=== PATIENT | female | born 1970 | race Caucasian/White ===

== ENCOUNTER 2019-08-21 15:20 | Observation (INO) | payer BC ==
--- NOTE | 2019-08-21 16:08 | ER Document Report ---
ED Medical Screen (RME) - General Stated Complaint: ABNORMAL LABS Time Seen by Provider: 08/21/19 16:02 Primary Care Provider: FIDE COE, DEMOLITION WORKER [Primary Care Provider] - Follow up as needed Notes: Patient is a 48-year-old female who presents to the emergency department for a hemoglobin of 6.1. Patient was seen by her primary care provider yesterday and her hemoglobin was low at the office and she was referred to [facility] and today at 1205 her labs were drawn and her hemoglobin was 6.1. Patient reports that she is having heavy menstrual cycles. States that she has fibroids. Patient has history of a tubal ligation and was told previously that she needs a hysterectomy. Patient also reports being tired. Exam: Slightly pale in color. I have greeted and performed a rapid initial assessment of this patient. A comprehensive ED assessment and evaluation of the patient, analysis of test results and completion of medical decision making process will be conducted by an additional ED providers. - Related Data Allergies/Adverse Reactions: codeine [Codeine] Allergy (Mild, Verified 05/19/12 09:13) Past Medical History Renal/ Medical History: Reports: Hx Ovarian Cysts - pcos Infectious Medical History: Denies: Hx MRSA Past Surgical History: Reports: Hx Appendectomy, Hx Section - x2, Hx Cholecystectomy - Immunizations Immunizations up to date: No Hx Diphtheria, Pertussis, Tetanus Vaccination: No Physical Exam - Vital signs Vitals: Temp Pulse Resp BP Pulse Ox 97.9 F 119 H 16 175/92 H 97 08/21/19 15:24 08/21/19 15:24 08/21/19 15:24 08/21/19 15:24 08/21/19 15:24 Course - Vital Signs Vital signs: Temp Pulse Resp BP Pulse Ox 97.9 F 119 H 16 175/92 H 97 08/21/19 15:24 08/21/19 15:24 08/21/19 15:24 08/21/19 15:24 08/21/19 15:24 Doctor's Discharge - Discharge Referrals: FIDE COE, DEMOLITION WORKER [Primary Care Provider] - Follow up as needed
[2019-08-21] MEDS ORDERED: NORMAL SALINE 250 ML IV PRN ×4 (16:15→19:52)
--- NOTE | 2019-08-21 17:02 | RADIOLOGY REPORT (SQ) ---
EXAM DESCRIPTION: U/S NON OB PEL TV W/DOPPLER IMAGES COMPLETED DATE/TIME: 08/21/2019 4:51 pm REASON FOR STUDY: vaginal bleeding; hgb 6.1 COMPARISON: None. TECHNIQUE: Dynamic and static grayscale images acquired of the pelvis via transabdominal and transva ginal approach and recorded on PACS. Additional selected color Doppler and spectral images recorded. LIMITATIONS: None. FINDINGS: UTERUS: Multiple heterogenous masses, the largest measures 4.5 cm. ENDOMETRIAL STRIPE: No focal or generalized thickening. No masses. CERVIX: No nabothian cysts. RIGHT OVARY AND DOPPLER: Ovary not visualized. LEFT OVARY AND DOPPLER: Normal size. No worrisome masses. Normal arterial vascular flow without evid ence for torsion. FREE FLUID: None noted. OTHER: No other significant finding. MEASUREMENTS: UTERUS: 6.0 x 7.3 x 10.4 cm. ENDOMETRIAL STRIPE: 6 mm. RIGHT OVARY: Not visualized. LEFT OVARY: 1.9 x 2.3 x 3.4 cm. IMPRESSION: MULTIPLE UTERINE FIBROIDS. TECHNICAL DOCUMENTATION: JOB ID: [id number] [employer]- All Rights Reserved Rev-07/20 Reading location - IP/workstation name: [email or web address]
--- NOTE | 2019-08-21 19:02 | ER Document Report ---
ED General - General Mode of Arrival: Ambulatory TRAVEL OUTSIDE OF THE [place] IN LAST 30 DAYS: No - General Chief Complaint: Abnormal Lab Results Stated Complaint: ABNORMAL LABS Time Seen by Provider: 08/21/19 16:02 Notes: 48-year-old female past medical history significant for hypertension, anxiety, uterine fibroids presents to the emergency room after being called by her primar care physician that that her hemoglobin was extremely low and needed to be repeated. Patient states she had repeat blood work done this afternoon and was told to go the emergency room for blood transfusion. Patient states she is that she has a long history of heavy vaginal bleeding during her menstrual cycles. Patient states that she was told she would need an ablation or hysterectomy which she did not get done as she did not have insurance. Patient states she has been bleeding consistently for the past 5 months recently stopped on August 03. No history of anemia. Not currently on any iron supplements patient states that she gets extremely fatigued with any type of exertion. Feels lightheaded and dizzy at times. Chest pain, shortness of breath, no difficulty breathing. ( NUHA NGUYEN) - Related Data Allergies/Adverse Reactions: codeine [Codeine] Allergy (Mild, Verified 05/19/12 09:13) shellfish derived Allergy (Verified 08/21/19 20:37) Past Medical History - General Information source: Patient - Social History Smoking Status: Current Every Day Smoker Chew tobacco use (# tins/day): No Frequency of alcohol use: Social Drug Abuse: None Family History: Reviewed & Not Pertinent Patient has homicidal ideation: No Renal/ Medical History: Reports: Hx Ovarian Cysts - pcos Infectious Medical History: Denies: Hx MRSA Past Surgical History: Reports: Hx Appendectomy, Hx Section - x2, Hx Cholecystectomy - Immunizations Immunizations up to date: No Hx Diphtheria, Pertussis, Tetanus Vaccination: No Review of Systems - Review of Systems Constitutional: Malaise, Weakness Cardiovascular: Lightheaded Respiratory: No symptoms reported Gastrointestinal: No symptoms reported Musculoskeletal: No symptoms reported Skin: No symptoms reported Neurological/Psychological: No symptoms reported -: Yes All other systems reviewed and negative Physical Exam - General General appearance: Appears well, Alert In distress: Mild - HEENT Head: Normocephalic Eyes: Pale conjunctiva Extraocular movements intact: Yes Pharynx: Normal Neck: Normal - Respiratory Respiratory status: No respiratory distress Chest status: Nontender Breath sounds: Normal Chest palpation: Normal - Cardiovascular Rhythm: Regular Heart sounds: Normal auscultation Murmur: No - Abdominal Inspection: Normal Distension: No distension Bowel sounds: Normal Tenderness: Nontender Organomegaly: No organomegaly - Back Back: Normal, Nontender. No: CVA tenderness - Neurological Neuro grossly intact: Yes Cognition: Normal Orientation: AAOx4 Mark Coma Scale Eye Opening: Spontaneous Mark Coma Scale Verbal: Oriented [place] Coma Scale Motor: Obeys Commands Mark Coma Scale Total: 15 Speech: Normal Motor strength normal: LUE, RUE, LLE, RLE Sensory: Normal - Skin Skin Temperature: Warm Skin Moisture: Dry Skin Color: Normal - Vital signs Vitals: Temp 97.8 F 08/21/19 15:20 Course - Consults Jonas Hoffmann Time consulted: 19:25 Consulted provider: follow-up in office Dr. Adair Time consulted: 19:30 Consulted provider: will see as inpatient - Re-evaluation Re-evalutation: 08/21/19 19:23 Patient is resting comfortably concerned about a blood transfusion. Patient was given with the risks and benefits of blood transfusion. Counseled patient on need for admission. Patient is agreeable for admission. 08/21/19 21:31 (NUHA NGUYEN) 08/22/19 00:40 This patient was personally evaluated by me in addition to the physician assistant department manager or nurse practitioner. Review of systems: Generalized weakness Physical exam: No acute distress Medical decision making: Symptomatic anemia, will require admission and transfusion. Likely AMMONIA TECHNICIAN source. Discussed with AMMONIA TECHNICIAN hospitalist. (CHANTEL SIMONS) - Vital Signs Vital signs: Temp Pulse Resp BP Pulse Ox 98.7 F 77 14 130/68 H 100 08/21/19 23:00 08/21/19 23:00 08/21/19 23:00 08/21/19 23:00 08/21/19 23:00 - Laboratory Laboratory results interpreted by me: 08/21/19 16:45 Crossmatch See Detail - Consults Jonas Hoffmann Reason for consultation: 08/21/19 21:32 Lab results, ultrasound results, admission (NUHA NGUYEN) Dr. Adair Reason for consultation: 08/21/19 21:33 Discussed symptomatic anemia need for blood transfusion, accepts admission. (NUHA NGUYEN) Discharge - Discharge Admitting Provider: Mana (Hospitalist) Unit Admitted: Medical Floor - Discharge Clinical Impression: Anemia Qualifiers: Anemia type: unspecified type Qualified Code(s): D64.9 - Anemia, unspecified Uterine fibroid Qualifiers: Uterine leiomyoma location: unspecified location Qualified Code(s): D25.9 - Le iomyoma of uterus, unspecified Condition: Stable Disposition: ADMITTED OBSERVATION
[2019-08-21] MEDS ORDERED: MAG HYDROX/AL HYDROX/SIMETH SUSP 30 ML UDCUP PO PRN (19:55)
[2019-08-21] MEDS ORDERED: MAGNESIUM HYDROXIDE SUSP 30 ML UDCUP PO PRN (19:55)
[2019-08-21] MEDS ORDERED: NORMAL SALINE 1000 ML 1,000 ML IV PRN (19:55)
[2019-08-21] MEDS ORDERED: PROMETHAZINE HCL INJ 25 MG/1 ML VIAL IV PRN (19:55)
[2019-08-21] MEDS ORDERED: METOPROLOL TARTRATE PF/INJ 5 MG/5 ML SDV IV PRN (20:02)
[2019-08-21] MEDS ORDERED: GUAIFENESIN SYRP 200 MG/10 ML UDC PO PRN (20:02)
[2019-08-21] MEDS ORDERED: LORAZEPAM INJ 2 MG/1 ML VIAL IV PRN (20:02)
[2019-08-21] MEDS ORDERED: NICOTINE 21 MG/24 HR PATCH.TD24 TD PRN (20:02)
[2019-08-21] MEDS ORDERED: MELATONIN 5 MG TABLET PO PRN (20:02)
[2019-08-21] MEDS ORDERED: MORPHINE SULFATE 10 MG/ML INJ IV PRN (20:02)
[2019-08-21] MEDS ORDERED: ACETAMINOPHEN 325 MG TABLET PO PRN (20:02)
[2019-08-21] MEDS: ACETAMINOPHEN 325 MG TABLET PO PRN (20:50)
[2019-08-21] MEDS: DIPHENHYDRAMINE HCL 25 MG CAPSULE PO PRN (20:50)
--- NOTE | 2019-08-21 22:17 | PDOC H&P ---
History of Present Illness Admission Date/PCP: 08/21/2019 19:33 FIDE COE NP Patient complains of: Abnormal laboratory results History of Present Illness: BRIEN BUTLER is a 48 year old female presented to the emergency room with a history of abnormal laboratory results at her primary care provider's office yesterday. She admits being called by her primary care provider's office with the information that her hemoglobin was 6.1 and that she would require a transfusion and thus needed to present to the emergency room for further evaluation. She further admits the associated symptoms of fatigue and accompanying exertional weakness. She continues by providing a history of heavy vaginal bleeding over the last 5 months related to uterine fibroids. She has been advised that she will need to have a hysterectomy performed. She has not identified any additional associated or accompanying signs and symptoms. She denies prior similar episodes. She has not identified any additional aggravating or ameliorating factors for her anemia. In the emergency room patient was found to have a hemoglobin of 6.1 with a hematocrit of 21.4. She was subsequently admitted to observation status for blood transfusions. Past Medical History Cardiac Medical History: Reports: Hypertension Denies: Coronary Artery Disease, DVT, Hyperlipidema, Pulmonary Embolism Pulmonary Medical History: Denies: Asthma, Chronic Obstructive Pulmonary Disease (COPD) EENT Medical History: Denies: Cataracts, Ears - Hearing aids Neurological Medical History: Denies: Hemorrhagic CVA, Ischemic CVA, Seizures Endocrine Medical History: Reports: Obesity Denies: Diabetes Mellitus Type 1, Diabetes Mellitus Type 2, Hyperthyroidism, Hypothyroidism Renal/ Medical History: Reports: Other - Uterine fibroids with heavy dysfunctional uterine bleeding. PCOS. Denies: Chronic Kidney Disease, Nephrolithiasis Malignancy Medical History: Reports: None GI Medical History: Denies: Cirrhosis, Crohn's Disease, Hepatitis, Peptic Ulcer Disease, Ulcerative Colitis Musculoskeltal Medical History: Denies: Arthritis, Fibromyalgia, Gout Skin Medical History: Denies: Eczema, Psoriasis Psychiatric Medical History: Reports: General Anxiety Disorder, Tobacco Dependency Denies: Alcohol Dependency, Substance Abuse Traumatic Medical History: Reports: None Hematology: Reports: Anemia Denies: Bleeding Tendencies Infectious Medical History: Reports: None Past Surgical History Past Surgical History: Reports: Appendectomy, Section - x2, Cholecystectomy Social History Information Source: Patient Smoking Status: Current Every Day Smoker Electronic Cigarette use?: No Frequency of Alcohol Use: Occasional Hx Recreational Drug Use: No Drugs: None Hx Prescription Drug Abuse: No - Advance Directive Resuscitation Status: Full Code Surrogate healthcare decision maker:: Marina Camacho Family History Family History: Hypertension. denies: CAD, DM, Malignancy Parental Family History Reviewed: Yes Children Family History Reviewed: No Sibling(s) Family History Reviewed.: Yes Medication/Allergy Home Medications: Phentermine HCl [Adipex-P] 37.5 mg PO DAILY 05/15/12 Metformin HCl [Glucophage 500 Mg Tablet] 500 mg PO DAILY 05/17/12 Oxycodone HCl/Acetaminophen [Percocet 5-325 mg Tablet] 1 tab PO TIDP PRN 05/19/12 Sulfamethoxazole/Trimethoprim [Septra-DS 800/160 mg Tablet] 1 tab PO BID 05/19/12 Allergies/Adverse Reactions: codeine [Codeine] Allergy (Mild, Verified 05/19/12 09:13) Review of Systems Constitutional: PRESENT: as per HPI, fatigue, weakness - Exertional. ABSENT: anorexia, chills, fever(s) Eyes: ABSENT: visual disturbances, other - Eye pain Ears: ABSENT: hearing changes, other - Ear pain Nose, Mouth, and Throat: ABSENT: headache(s), sore throat Cardiovascular: ABSENT: chest pain, palpitations Respiratory: ABSENT: cough, dyspnea Gastrointestinal: ABSENT: abdominal pain, constipation, diarrhea, nausea, vomiting Genitourinary: PRESENT: other - Heavy vaginal bleeding nearly continuous for 5 months. ABSENT: dysuria, hematuria Musculoskeletal: ABSENT: back pain, joint swelling Integumentary: ABSENT: diaphoresis, pruritus, rash Neurological: ABSENT: confusion, convulsions, dizziness, focal weakness, memory loss, syncope Psychiatric: PRESENT: anxiety. ABSENT: depression Endocrine: ABSENT: cold intolerance, heat intolerance, polydipsia, polyphagia, polyuria Hematologic/Lymphatic: ABSENT: easy bleeding, easy bruising Allergic/Immunologic: ABSENT: seasonal rhinorrhea Physical Exam Vital Signs: Temp Pulse Resp BP Pulse Ox 97.9 F 119 H 16 175/92 H 97 08/21/19 15:24 08/21/19 15:24 08/21/19 15:24 08/21/19 15:24 08/21/19 15:24 Intake & Output 08/19/19 08/20/19 08/21/19 23:59 23:59 23:59 Weight 99.4 kg General appearance: PRESENT: no acute distress, cooperative, obese Head exam: PRESENT: atraumatic, normocephalic Eye exam: PRESENT: conjunctiva pale. ABSENT: conjunctival injection, nystagmus, scleral icterus Ear exam: PRESENT: normal external ear exam. ABSENT: bleeding, drainage Mouth exam: PRESENT: dry mucosa, neck supple Neck exam: ABSENT: thyromegaly, tracheal deviation Respiratory exam: PRESENT: clear to auscultation luzmaria, symmetrical, unlabored Cardiovascular exam: PRESENT: RRR. ABSENT: clicks, gallop, rubs, tachycardia Pulses: PRESENT: normal radial pulses, normal dorsalis pedis pul Vascular exam: PRESENT: normal capillary refill, pallor - Mild generalized pallor GI/Abdominal exam: PRESENT: normal bowel sounds, soft Rectal exam: PRESENT: deferred Extremities exam: ABSENT: joint swelling, pedal edema Musculoskeletal exam: ABSENT: deformity, dislocation Neurological exam: PRESENT: alert, oriented to person, oriented to place, oriented to time, oriented to situation, CN II-XII grossly intact. ABSENT: motor sensory deficit Psychiatric exam: PRESENT: appropriate affect, normal mood Skin exam: PRESENT: dry, intact, warm. ABSENT: jaundice, rash, urticaria Results Laboratory Results: 08/21/19 16:45 Blood Type O POSITIVE Antibody Screen NEGATIVE Impressions: Transvaginal US 08/21/19 16:08 IMPRESSION: MULTIPLE UTERINE FIBROIDS. Assessment and Plan - Diagnosis (1) Anemia due to blood loss, chronic Is this a current diagnosis for this admission?: Yes (2) Dysfunctional uterine bleeding Is this a current diagnosis for this admission?: Yes (3) Uterine fibroid Qualifiers: Uterine leiomyoma location: unspecified location Qualified Code(s): D25.9 - Leiomyoma of uterus, unspecified Is this a current diagnosis for this admission?: Yes (4) History of polycystic ovarian syndrome Is this a current diagnosis for this admission?: Yes (5) Hypertension Qualifiers: Hypertension type: essential hypertension Qualified Code(s): I10 - Essential (primary) hypertension Is this a current diagnosis for this admission?: Yes (6) Generalized anxiety disorder Is this a current diagnosis for this admission?: Yes (7) Obesity Qualifiers: Obesity type: unspecified obesity type Obesity classification: unspecified obesity classification Serious obesity comorbidity presence: with serious comorbidity Qualified Code(s): E66.9 - Obesity, unspecified Is this a current diagnosis for this admission?: Yes (8) Continuous tobacco abuse Is this a current diagnosis for this admission?: Yes - Plan Summary Summary: Patient will be admitted observation status on the medical floor where she will receive routine supportive and symptomatic cares. She will be given a transfusion of 2 units of packed red blood cells overnight and her hemoglobin hematocrit will be rechecked posttransfusion. She will receive Ativan 1 mg IV every 4 hours as needed for anxiety or restlessness. She received morphine sulfate 2 to 4 mg IV every 2 hours on an as-needed basis for pain. She will receive routine pretransfusion Tylenol and Benadryl. She will receive hydralazine and/or metoprolol intravenously as needed for control of blood pressure and heart rate. Smoking cessation is advised and counseled briefly at the bedside. A nicotine patch is available for the patient's use, if desired. She will be placed on a cardiac diet. A gynecology consultation will be obtained on a routine basis to arrange follow-up treatment. - Time Time Spent with patient: 15-24 minutes Smoking Cessation Education: 3 to 10 minutes Medications reviewed and adjusted accordingly: Yes Anticipated discharge: Home Within: within 24 hours - Inpatient Certification Based on my medical assessment, after consideration of the patient's comorbidities, presenting symptoms, or acuity I expect that the services needed warrant INPATIENT care.: No I certify that my determination is in accordance with my understanding of Medicare's requirements for reasonable and necessary INPATIENT services [42 CFR 412.3e].: No
[2019-08-21] MEDS: HEPARIN SOD (PORCINE) 5,000 UNIT/ML 1 ML VIAL SUBCUT SCH (22:48)
[2019-08-21 22:49] LABS: APPEARANCE,URINE CLEAR; BILIRUBIN,URINE NEGATIVE (NEGATIVE); COLOR,URINE YELLOW; GLUCOSE, URINE NEGATIVE (NEGATIVE); KETONES,URINE NEGATIVE (NEGATIVE); PROTEIN,URINE NEGATIVE (NEGATIVE); URINE SPECIFIC GRAVITY 1.016; UROBILINOGEN,URINE NEGATIVE mg/dL (<2.0)
[2019-08-21] MEDS: FAMOTIDINE 20 MG TABLET PO SCH (22:51)
[2019-08-22] MEDS: ACETAMINOPHEN 325 MG TABLET PO PRN (03:15)
[2019-08-22] MEDS: DIPHENHYDRAMINE HCL 25 MG CAPSULE PO PRN (03:15)
[2019-08-22] MEDS: HEPARIN SOD (PORCINE) 5,000 UNIT/ML 1 ML VIAL SUBCUT SCH ×2 (06:40→15:41)
[2019-08-22 09:59] LABS: ABSOLUTE BASOPHILS # (AUTO) 0.1 10^3/uL (0.0-0.2); ABSOLUTE EOSINOPHILS # (AUTO) 0.2 10^3/uL (0.0-0.6); ABSOLUTE LYMPHOCYTES (AUTO) 1.6 10^3/uL (0.5-4.7); ABSOLUTE MONOCYTES (AUTO) 0.8 10^3/uL (0.1-1.4); ABSOLUTE NEUT (AUTO) 3.2 10^3/uL (1.7-8.2); BASOPHILS % (AUTO) 1.4 % (0-2); EOSINOPHILS % (AUTO) 3.1 % (0-6); HEMATOCRIT 27.9 % (36.0-47.0); LYMPHOCYTES % (AUTO) 27.6 % (13-45); MEAN CORPUSCULAR HEMOGLOBIN 19.9 pg (27.0-33.4); MEAN CORPUSCULAR HGB CONC 30.2 g/dL (32.0-36.0); MONOCYTES % (AUTO) 13.1 % (3-13); RED BLOOD COUNT 4.24 10^6/uL (3.72-5.28); RED CELL DISTRIBUTION WIDTH 28.7 % (11.5-14.0); SEGMENTED NEUTROPHILS % (AUTO) 54.8 % (42-78); TOTAL CELLS COUNTED % (AUTO) 100 %; WHITE BLOOD COUNT 5.9 10^3/uL (4.0-10.5)
[2019-08-22] MEDS ORDERED: PAROXETINE HCL 20 MG TABLET PO SCH (10:00)
[2019-08-22] MEDS ORDERED: AMLODIPINE BESYLATE 10 MG TABLET PO SCH (10:00)
[2019-08-22 10:01] LABS: HEMOGLOBIN 8.4 g/dL (12.0-15.5)
[2019-08-22 10:02] LABS: MEAN CORPUSCULAR VOLUME 66 fl (80-97)
[2019-08-22 10:28] LABS: ANISOCYTOSIS 4+; HYPOCHROMASIA 3+; OVALOCYTES 1+; POIKILOCYTOSIS 1+; POLYCHROMASIA 1+; STOMATOCYTES SLIGHT
[2019-08-22 10:29] LABS: PLATELET CLUMPS PRESENT; PLATELET COMMENT ADEQUATE; PLATELET LARGE PRESENT
[2019-08-22 10:30] LABS: ANION GAP 6 (5-19); BLOOD UREA NITROGEN 8 mg/dL (7-20); CALCIUM 8.5 mg/dL (8.4-10.2); CARBON DIOXIDE 26 mmol/L (22-30); CHLORIDE 104 mmol/L (98-107); CHOLESTEROL 113.76 mg/dL (0-200); GLUCOSE 102 mg/dL (75-110); POTASSIUM 3.8 mmol/L (3.6-5.0); TRIGLYCERIDES 141 mg/dL (<150)
[2019-08-22 10:32] LABS: PLATELET COUNT 340 10^3/uL (150-450)
[2019-08-22 10:42] LABS: DIRECT LDL 67 mg/dL (<100)
[2019-08-22] MEDS: FAMOTIDINE 20 MG TABLET PO SCH (11:06)
[2019-08-22] MEDS: DOCUSATE SODIUM 100 MG CAPSULE PO SCH ×2 (11:07→19:23)
[2019-08-22] MEDS ORDERED: CYANOCOBALAMIN (VITAMIN B-12) INJ 1000 MCG/1 ML VIAL IM ONE ×2 (14:30→16:30)
[2019-08-22] MEDS ORDERED: IRON SUCROSE COMPLEX 300 MG in NORMAL SALINE 250 ML IV ONE (16:30)
--- NOTE | 2019-08-22 16:36 | PDOC CONSULTATION ---
Consultation Consult Date: 08/22/19 Attending physician:: SHAMIKA BELCHER Provider Consulted: CARI NAGY Consult reason:: fibroids, anemia History of Present Illness Admission Date/PCP: 08/21/19 20:11 FIDE COE NP Patient complains of: anemia, known h/o uterine firboids. History of Present Illness: BRIEN BUTLER is a 48 year old female with h/o section, rick, appy, gastric sleeve in 2014 then Gastric bypass in 2017 presents for anemia as dx from her PCM. She reports increasing irregular menses over the last year. She has usually two menses a year. 7 days of bleeding with changing pads q 1-2 hours and then she bleeds for 5 days sometimes light and sometimes heavy. She is well known to me as I saw her in 2018 several times - she was planning to have an ablation to temporize things until she could afford hysterectomy but then never showed up after that. EMBx was negative in 2018. SHe has known h/o anemia and h/o thrombocytopenia as well. She had been placed on Lysteda by Dr. Wheeler in the past but patient reports that the Lysteda caused severe pain. She reports that she was lost to care due to lost insurance but just obtained insurance in the last month. Past Medical History LMP: Aug Gynecological Infection: No Cardiac Medical History: Reports: Hypertension Denies: Coronary Artery Disease, DVT, Hyperlipidema, Pulmonary Embolism Pulmonary Medical History: Denies: Asthma, Chronic Obstructive Pulmonary Disease (COPD) EENT Medical History: Denies: Cataracts, Ears - Hearing aids Neurological Medical History: Denies: Hemorrhagic CVA, Ischemic CVA, Seizures Endocrine Medical History: Reports: Obesity Denies: Diabetes Mellitus Type 1, Diabetes Mellitus Type 2, Hyperthyroidism, Hypothyroidism Renal/ Medical History: Reports: Other - Uterine fibroids with heavy dysfunctional uterine bleeding. PCOS. Denies: Chronic Kidney Disease, Nephrolithiasis Malignancy Medical History: Reports: None GI Medical History: Denies: Cirrhosis, Crohn's Disease, Hepatitis, Peptic Ulcer Disease, Ulcerative Colitis Musculoskeltal Medical History: Denies: Arthritis, Fibromyalgia, Gout Skin Medical History: Denies: Eczema, Psoriasis Psychiatric Medical History: Reports: General Anxiety Disorder, Tobacco Dependency Denies: Alcohol Dependency, Depression, Substance Abuse Traumatic Medical History: Reports: None Infectious Medical History: Reports: None Denies: Methicillin-Resistant Staph Aureus Social History Information Source: Patient Lives with: Family Smoking Status: Current Every Day Smoker Electronic Cigarette use?: No Frequency of Alcohol Use: Occasional Hx Recreational Drug Use: No Drugs: None Hx Prescription Drug Abuse: No - Advance Directive Resuscitation Status: Full Code Family History Family History: Hypertension. denies: CAD, DM, Malignancy Parental Family History Reviewed: No Children Family History Reviewed: NA Sibling(s) Family History Reviewed.: NA Medication/Allergy Home Medications: RX: Alprazolam 0.25 mg PO BIDP PRN 08/21/19 RX: Amlodipine Besylate [Norvasc 10 mg Tablet] 10 mg PO DAILY 08/21/19 RX: Paroxetine HCl [Paxil] 10 mg PO DAILY 08/21/19 Ferrous Sulfate [Slow Fe] 142 mg PO DAILY #90 tablet.er 08/22/19 Medroxyprogesterone Acet [Provera 10 Mg Tablet] 20 mg PO TID 30 Days #39 tablet 08/22/19 RX: Acetaminophen [Tylenol 325 mg Tablet] 650 mg PO Q4HP PRN tablet 08/22/19 RX: Multivitamin 1 each PO DAILY #90 tablet 08/22/19 RX: Nicotine [Nicoderm 21 mg/24 Hr Transderm Patch] 1 each TD DAILYP PRN #30 patch.td24 08/22/19 Allergies/Adverse Reactions: codeine [Codeine] Allergy (Mild, Verified 05/19/12 09:13) shellfish derived Allergy (Verified 08/21/19 20:37) Review of Systems Constitutional: ABSENT: chills, fever(s), headache(s), weight gain, weight loss Gastrointestinal: ABSENT: abdominal pain, constipation, diarrhea, hematemesis, hematochezia, nausea, vomiting Genitourinary: ABSENT: dysuria, hematuria Integumentary: ABSENT: rash, wounds Neurological: ABSENT: abnormal gait, abnormal speech, confusion, dizziness, focal weakness, syncope Psychiatric: ABSENT: anxiety, depression, homidical ideation, suicidal ideation Endocrine: ABSENT: cold intolerance, heat intolerance, polydipsia, polyuria Hematologic/Lymphatic: ABSENT: easy bleeding, easy bruising Physical Exam - Physical Exam Vital Signs: Temp Pulse Resp BP Pulse Ox 98.5 F 81 18 143/68 H 100 08/22/19 11:07 08/22/19 11:07 08/22/19 11:07 08/22/19 11:07 08/22/19 11:07 Intake & Output 08/21/19 08/22/19 08/23/19 06:59 06:59 06:59 Intake Total 540 660 Balance 540 660 Weight 101.1 kg General appearance: PRESENT: no acute distress, well-developed, well-nourished Neurological exam: PRESENT: alert, awake, oriented to person, oriented to place, oriented to time, oriented to situation, CN II-XII grossly intact. ABSENT: motor sensory deficit Skin exam: PRESENT: dry, intact, warm. ABSENT: cyanosis, rash Result Laboratory Results: 08/22/19 09:36 08/22/19 09:36 08/21/19 08/21/19 08/22/19 16:45 21:41 09:36 WBC RBC Hgb Hct MCV MCH MCHC RDW Plt Count Seg Neutrophils % Sodium 136.2 L Potassium 3.8 Chloride 104 Carbon Dioxide 26 Anion Gap 6 BUN 8 Creatinine 0.62 Est GFR ( Amer) > 60 Glucose 102 Calcium 8.5 Magnesium 2.2 Triglycerides 141 Cholesterol 113.76 LDL Cholesterol Direct 67 VLDL Cholesterol 28.0 HDL Cholesterol 33 L Vitamin B12 TSH Urine Color YELLOW Urine Appearance CLEAR Urine pH 7.0 Ur Specific [place] 1.016 Urine Protein NEGATIVE Urine Glucose (UA) NEGATIVE Urine Ketones NEGATIVE Urine Blood NEGATIVE Urine RBC (Auto) 1 Blood Type O POSITIVE Antibody Screen NEGATIVE 08/22/19 08/22/19 08/22/19 09:36 09:36 09:36 WBC 5.9 RBC 4.24 Hgb 8.4 L D Hct 27.9 L MCV 66 L D MCH 19.9 L MCHC 30.2 L RDW 28.7 H Plt Count 340 Seg Neutrophils % 54.8 Sodium Potassium Chloride Carbon Dioxide Anion Gap BUN Creatinine Est GFR ( Amer) Glucose Calcium Magnesium Triglycerides Cholesterol LDL Cholesterol Direct VLDL Cholesterol HDL Cholesterol Vitamin B12 256.0 TSH 2.02 Urine Color Urine Appearance Urine pH Ur Specific [place] Urine Protein Urine Glucose (UA) Urine Ketones Urine Blood Urine RBC (Auto) Blood Type Antibody Screen Impressions: Transvaginal US 08/21/19 16:08 IMPRESSION: MULTIPLE UTERINE FIBROIDS. Assessment & Plan - Diagnosis (1) Anemia Qualifiers: Anemia type: unspecified type Qualified Code(s): D64.9 - Anemia, unspecified Is this a current diagnosis for this admission?: Yes Plan: likely combination of h/o gastric bypass and anemia of chronic blood loss (2) Anemia due to blood loss, chronic Is this a current diagnosis for this admission?: Yes Plan: [facility] - recommend hysterectomy is she desires to proceed at this time. She will f/u in the office to obtain EMBx and Pap smear updated. Do to know having very irregular and heavy bleeding over the last several months would recommend updated EMBx. She may also need further Iron infusions and poss Heme/ONC outpatient consult. (3) Dysfunctional uterine bleeding Is this a current diagnosis for this admission?: Yes Plan: see above (4) Uterine fibroid Qualifiers: Uterine leiomyoma location: unspecified location Qualified Code(s): D25.9 - Leiomyoma of uterus, unspecified Is this a current diagnosis for this admission?: Yes Plan: multiple fibroids - increased size and number since evaluation in 2018 - Time Time Spent: 30 to 50 Minutes Medications reviewed and adjusted accordingly: Yes Anticipated discharge: Home Within: within 48 hours - Inpatient Certification Based on my medical assessment, after consideration of the patient's comorbidities, presenting symptoms, or acuity I expect that the services needed warrant INPATIENT care.: Yes I certify that my determination is in accordance with my understanding of Medicare's requirements for reasonable and necessary INPATIENT services [42 CFR 412.3e].: Yes Medical Necessity: Need For IV Fluids, Other - needs sto finish iron infusion - Hospitalist will discharge when ready
--- NOTE | 2019-08-22 17:00 | PDOC DISCHARGE SUMMARY ---
Impression - Admit/DC Date/PCP Admission Date/Primary Care Provider: 08/21/19 20:11 FIDE COE NP Discharge Date: 08/22/19 - Discharge Diagnosis (1) Anemia due to blood loss, chronic Is this a current diagnosis for this admission?: Yes (2) Continuous tobacco abuse Is this a current diagnosis for this admission?: Yes (3) Dysfunctional uterine bleeding Is this a current diagnosis for this admission?: Yes (4) Generalized anxiety disorder Is this a current diagnosis for this admission?: Yes (5) History of polycystic ovarian syndrome Is this a current diagnosis for this admission?: Yes (6) Hypertension Is this a current diagnosis for this admission?: Yes (7) Obesity Is this a current diagnosis for this admission?: Yes (8) Uterine fibroid Is this a current diagnosis for this admission?: Yes - Additional Information Resuscitation Status: Full Code Discharge Diet: Regular Discharge Activity: Activity As Tolerated, Slowly Increase Activity Referrals: FIDE COE NP [Primary Care Provider] - Follow up as needed CARI NAGY MD [ACTIVE STAFF] - 08/29/19 8:00 am Prescriptions: Multivitamin 1 each PO DAILY #90 tablet Nicotine [Nicoderm 21 mg/24 Hr Transderm Patch] 1 each TD DAILYP PRN #30 patch.td24 PRN Reason: Medroxyprogesterone Acet [Provera 10 Mg Tablet] 20 mg PO TID 30 Days #39 tablet Ferrous Sulfate [Slow Fe] 142 mg PO DAILY #90 tablet.er Home Medications: Alprazolam 0.25 mg PO BIDP PRN 08/21/19 Amlodipine Besylate [Norvasc 10 mg Tablet] 10 mg PO DAILY 08/21/19 Paroxetine HCl [Paxil] 10 mg PO DAILY 08/21/19 Acetaminophen [Tylenol 325 mg Tablet] 650 mg PO Q4HP PRN tablet 08/22/19 Ferrous Sulfate [Slow Fe] 142 mg PO DAILY #90 tablet.er 08/22/19 Medroxyprogesterone Acet [Provera 10 Mg Tablet] 20 mg PO TID 30 Days #39 tablet 08/22/19 Multivitamin 1 each PO DAILY #90 tablet 08/22/19 Nicotine [Nicoderm 21 mg/24 Hr Transderm Patch] 1 each TD DAILYP PRN #30 patch.td24 08/22/19 History of Present Illiness History of Present Illness: Per H&P by Dr. Adair: BRIEN BUTLER is a 48 year old female presented to the emergency room with a history of abnormal laboratory results at her primary care provider's office yesterday. She admits being called by her primary care provider's office with the information that her hemoglobin was 6.1 and that she would require a transfusion and thus needed to present to the emergency room for further evaluation. She further admits the associated symptoms of fatigue and accompanying exertional weakness. She continues by providing a history of heavy vaginal bleeding over the last 5 months related to uterine fibroids. She has been advised that she will need to have a hysterectomy performed. She has not identified any additional associated or accompanying signs and symptoms. She denies prior similar episodes. She has not identified any additional aggravating or ameliorating factors for her anemia. In the emergency room patient was found to have a hemoglobin of 6.1 with a hematocrit of 21.4. She was subsequently admitted to observation status for blood transfusions. Hospital Course Hospital Course: Patient was admitted to the medical floor. She is provided generous IV fluids and 2 units PRBC. Hemoglobin increased from 6.1 to 8.4. She denies any further vaginal bleeding at this time. Anemia panel revealed iron deficiency anemia and borderline low vitamin B12 deficiency. Patient does have a history of gastric bypass and so was provided IM Cyanocobalamin. She was also provided IV Venofer 300 mg. Gynecology was consulted; Dr. Pillai recommends that she start on daily Provera. It is also recommended that the patient continue a daily multivitamin and iron supplement. Patient is discharged home in stable condition. She is advised to follow-up with her primary care provider within 1 week. She is instructed to keep her appointment with Dr. Nagy scheduled August 28. She is encouraged to return the emergency department as needed for any concerning symptoms. Physical Exam Vital Signs: Temp Pulse Resp BP Pulse Ox 98.5 F 81 18 143/68 H 100 08/22/19 11:07 08/22/19 11:07 08/22/19 11:07 08/22/19 11:07 08/22/19 11:07 Intake & Output 08/21/19 08/22/19 08/23/19 06:59 06:59 06:59 Intake Total 540 660 Balance 540 660 Weight 101.1 kg General appearance: PRESENT: no acute distress, obese, well-developed, well- nourished Head exam: PRESENT: atraumatic, normocephalic Eye exam: PRESENT: conjunctiva pink, EOMI, PERRLA. ABSENT: scleral icterus Ear exam: PRESENT: normal external ear exam Mouth exam: PRESENT: moist, tongue midline Neck exam: ABSENT: carotid bruit, JVD, lymphadenopathy, thyromegaly Respiratory exam: PRESENT: clear to auscultation luzmaria. ABSENT: rales, rhonchi, wheezes Cardiovascular exam: PRESENT: RRR. ABSENT: diastolic murmur, rubs, systolic murmur Pulses: PRESENT: normal dorsalis pedis pul Vascular exam: PRESENT: normal capillary refill GI/Abdominal exam: PRESENT: normal bowel sounds, soft. ABSENT: distended, guarding, mass, organolmegaly, rebound, tenderness Rectal exam: PRESENT: deferred Extremities exam: PRESENT: full ROM. ABSENT: calf tenderness, clubbing, pedal edema Musculoskeletal exam: PRESENT: ambulatory Neurological exam: PRESENT: alert, awake, oriented to person, oriented to place, oriented to time, oriented to situation, CN II-XII grossly intact. ABSENT: motor sensory deficit Psychiatric exam: PRESENT: appropriate affect, normal mood. ABSENT: homicidal ideation, suicidal ideation Skin exam: PRESENT: dry, intact, warm. ABSENT: cyanosis, rash Results Laboratory Results: WBC 5.9 10^3/uL (4.0-10.5) 08/22/19 09:36 RBC 4.24 10^6/uL (3.72-5.28) 08/22/19 09:36 Hgb 8.4 g/dL (12.0-15.5) L D 08/22/19 09:36 Hct 27.9 % (36.0-47.0) L 08/22/19 09:36 MCV 66 fl (80-97) L D 08/22/19 09:36 MCH 19.9 pg (27.0-33.4) L 08/22/19 09:36 MCHC 30.2 g/dL (32.0-36.0) L 08/22/19 09:36 RDW 28.7 % (11.5-14.0) H 08/22/19 09:36 Plt Count 340 10^3/uL (150-450) 08/22/19 09:36 Lymph % (Auto) 27.6 % (13-45) 08/22/19 09:36 [place] % (Auto) 13.1 % (3-13) H 08/22/19 09:36 Eos % (Auto) 3.1 % (0-6) 08/22/19 09:36 Baso % (Auto) 1.4 % (0-2) 08/22/19 09:36 Absolute Neuts (auto) 3.2 10^3/uL (1.7-8.2) 08/22/19 09:36 Absolute Lymphs (auto) 1.6 10^3/uL (0.5-4.7) 08/22/19 09:36 Absolute Monos (auto) 0.8 10^3/uL (0.1-1.4) 08/22/19 09:36 Absolute Eos (auto) 0.2 10^3/uL (0.0-0.6) 08/22/19 09:36 Absolute Basos (auto) 0.1 10^3/uL (0.0-0.2) 08/22/19 09:36 Seg Neutrophils % 54.8 % (42-78) 08/22/19 09:36 Clumped Platelets PRESENT 08/22/19 09:36 Large Platelets PRESENT 08/22/19 09:36 Platelet Comment ADEQUATE 08/22/19 09:36 Polychromasia 1+ 08/22/19 09:36 Hypochromasia 3+ 08/22/19 09:36 Poikilocytosis 1+ 08/22/19 09:36 Basophilic Stippling PRESENT 08/22/19 09:36 Anisocytosis 4+ 08/22/19 09:36 Microcytosis 3+ 08/22/19 09:36 Ovalocytes 1+ 08/22/19 09:36 Stomatocytes SLIGHT 08/22/19 09:36 Sodium 136.2 mmol/L (137-145) L 08/22/19 09:36 Potassium 3.8 mmol/L (3.6-5.0) 08/22/19 09:36 Chloride 104 mmol/L (98-107) 08/22/19 09:36 Carbon Dioxide 26 mmol/L (22-30) 08/22/19 09:36 Anion Gap 6 (5-19) 08/22/19 09:36 BUN 8 mg/dL (7-20) 08/22/19 09:36 Creatinine 0.62 mg/dL (0.52-1.25) 08/22/19 09:36 Est GFR ( Amer) > 60 (>60) 08/22/19 09:36 Est GFR (MDRD) Non-Af > 60 (>60) 08/22/19 09:36 Glucose 102 mg/dL (75-110) 08/22/19 09:36 Calcium 8.5 mg/dL (8.4-10.2) 08/22/19 09:36 Magnesium 2.2 mg/dL (1.6-2.3) 08/22/19 09:36 Triglycerides 141 mg/dL (<150) 08/22/19 09:36 Cholesterol 113.76 mg/dL (0-200) 08/22/19 09:36 LDL Cholesterol Direct 67 mg/dL (<100) 08/22/19 09:36 VLDL Cholesterol 28.0 mg/dL (10-31) 08/22/19 09:36 HDL Cholesterol 33 mg/dL (>40) L 08/22/19 09:36 Vitamin B12 256.0 pg/mL (239-931) 08/22/19 09:36 TSH 2.02 uIU/mL (0.47-4.68) 08/22/19 09:36 Urine Color YELLOW 08/21/19 21:41 Urine Appearance CLEAR 08/21/19 21:41 Urine pH 7.0 (5.0-9.0) 08/21/19 21:41 Ur Specific [place] 1.016 08/21/19 21:41 Urine Protein NEGATIVE mg/dL (NEGATIVE) 08/21/19 21:41 Urine Glucose (UA) NEGATIVE mg/dL (NEGATIVE) 08/21/19 21:41 Urine Ketones NEGATIVE mg/dL (NEGATIVE) 08/21/19 21:41 Urine Blood NEGATIVE (NEGATIVE) 08/21/19 21:41 Urine Nitrite (Reflex) NEGATIVE (NEGATIVE) 08/21/19 21:41 Urine Bilirubin NEGATIVE (NEGATIVE) 08/21/19 21:41 Urine Urobilinogen NEGATIVE mg/dL (<2.0) 08/21/19 21:41 Leukocyte Esterase Rfl NEGATIVE (NEGATIVE) 08/21/19 21:41 Urine RBC (Auto) 1 /HPF 08/21/19 21:41 Urine WBC (Reflex) 1 /HPF 08/21/19 21:41 Squamous Epi Cells Auto 2 /HPF 08/21/19 21:41 Urine Mucus (Auto) RARE /LPF 08/21/19 21:41 Urine Ascorbic Acid NEGATIVE (NEGATIVE) 08/21/19 21:41 Blood Type O POSITIVE 08/21/19 16:45 Blood Type Confirm O POSITIVE 08/21/19 18:07 Antibody Screen NEGATIVE 08/21/19 16:45 Crossmatch See Detail 08/21/19 16:45 Impressions: Transvaginal US 08/21/19 16:08 IMPRESSION: MULTIPLE UTERINE FIBROIDS. Plan Plan of Treatment: Patient is discharged home in stable condition. She is advised to follow-up with her primary care provider within 1 week. Keep her scheduled appointment with Dr. Nagy for August 28 at 8 AM. Take your medications as prescribed. Stop smoking. Return to the emergency department as needed for concerning symptoms. Time Spent: Greater than 30 Minutes Stroke Is this a Stroke Patient?: No Acute Heart Failure - Is this a Heart Failure Patient?: No
[2019-08-22 17:44] VITALS: BP 127/68
== END 2019-08-22 19:30 | disposition home or self-care (01) ==
LOC: ER 15:20 → EH 20:11 → 4S 21:16
PROVIDERS: ADMIT Emergency Medicine; ATTEND Registered Nurse
DX: D50.0 Iron deficiency anemia secondary to blood loss (chronic) (principal); D51.9 Vitamin B12 deficiency anemia, unspecified; N93.8 Other specified abnormal uterine and vaginal bleeding; F41.1 Generalized anxiety disorder; I10 Essential (primary) hypertension; E66.9 Obesity, unspecified; D25.9 Leiomyoma of uterus, unspecified; F17.200 Nicotine dependence, unspecified, uncomplicated; N92.6 Irregular menstruation, unspecified; E28.2 Polycystic ovarian syndrome; Z98.84 Bariatric surgery status; Z90.49 Acquired absence of other specified parts of digestive tract; Z86.2 Personal history of diseases of the blood and blood-forming organs and certain disorders involving the immune mechanism; Z79.899 Other long term (current) drug therapy
CPT/HCPCS: 99285; 86900; 86901; 36415 ×2; 36430; 86850; 82607; 83735; 84443; 85025; 80048; 81001; 86920; 80061; 76830; 93976; P9016 ×2; J1756; J1644; J3420; J3490 ×2; J7050; G0378

== ENCOUNTER → 2019-08-21 | Outpatient (CLI) | payer BC ==
[2019-08-21 13:30] LABS: ABSOLUTE RETICS # 0.057 10^6/uL (0.028-0.122); HEMATOCRIT 21.4 % (36.0-47.0); MEAN CORPUSCULAR HEMOGLOBIN 16.8 pg (27.0-33.4); MEAN CORPUSCULAR HGB CONC 28.4 g/dL (32.0-36.0); PLATELET COUNT 393 10^3/uL (150-450); RED BLOOD COUNT 3.61 10^6/uL (3.72-5.28); RED CELL DISTRIBUTION WIDTH 21.6 % (11.5-14.0); RETICULOCYTE COUNT (AUTO) 1.59 % (0.66-2.85); WHITE BLOOD COUNT 6.9 10^3/uL (4.0-10.5)
[2019-08-21 13:52] LABS: ABSOLUTE LYMPHOCYTES# (MANUAL) 1.3 10^3/uL (0.5-4.7); ABSOLUTE MONOCYTES # (MANUAL) 0.8 10^3/uL (0.1-1.4); BASOPHILS % (MANUAL) 0 % (0-2); EOSINOPHILS % (MANUAL) 1 % (0-6); LYMPHOCYTES % (MANUAL) 19 % (13-45); MONOCYTES % (MANUAL) 11 % (3-13); SEGMENTED NEUTROPHILS % (MAN) 69 % (42-78); TOTAL CELLS COUNTED 100
[2019-08-21 13:54] LABS: ANISOCYTOSIS 3+; HYPERSEGMENTED NEUTROPHILS PRESENT; HYPOCHROMASIA 2+; OVALOCYTES SLIGHT; PLATELET COMMENT ADEQUATE; PLATELET LARGE PRESENT; POIKILOCYTOSIS 1+
[2019-08-21 13:55] LABS: SCHISTOCYTES SLIGHT; TEAR DROP CELLS SLIGHT
[2019-08-21 14:00] LABS: MEAN CORPUSCULAR VOLUME 59 fl (80-97)
[2019-08-21 14:03] LABS: HEMOGLOBIN 6.1 g/dL (12.0-15.5)
[2019-08-21 14:18] LABS: IRON(TIBC) < 10.1 ug/dL (37-170)
[2019-08-22 13:12] LABS: PATH REVIEW PATHOLOGIST REVIEWED
== END ==
LOC: OD 11:53
PROVIDERS: ATTEND Registered Nurse
DX: D64.9 Anemia, unspecified (principal)
CPT/HCPCS: 36415; 82728; 83540; 83550; 85025; 85045

== ENCOUNTER 2019-09-29 05:24 | Day surgery (SDC) | payer BC ==
[2019-09-24 12:16] LABS: APPEARANCE,URINE TURBID; BILIRUBIN,URINE NEGATIVE (NEGATIVE); COLOR,URINE YELLOW; GLUCOSE, URINE NEGATIVE (NEGATIVE); KETONES,URINE NEGATIVE (NEGATIVE); LEUKOCYTE ESTERASE,URINE TRACE (NEGATIVE); NITRITE,URINE NEGATIVE (NEGATIVE); PROTEIN,URINE 30 mg/dL (NEGATIVE); URINE SPECIFIC GRAVITY 1.024; UROBILINOGEN,URINE NEGATIVE mg/dL (<2.0)
[2019-09-24 12:19] LABS: HEMATOCRIT 34.4 % (36.0-47.0); HEMOGLOBIN 10.9 g/dL (12.0-15.5); MEAN CORPUSCULAR HEMOGLOBIN 23.4 pg (27.0-33.4); MEAN CORPUSCULAR HGB CONC 31.7 g/dL (32.0-36.0); MEAN CORPUSCULAR VOLUME 74 fl (80-97); PLATELET COUNT 376 10^3/uL (150-450); RED BLOOD COUNT 4.67 10^6/uL (3.72-5.28); RED CELL DISTRIBUTION WIDTH 30.5 % (11.5-14.0)
[2019-09-24 12:30] LABS: ALBUMIN 4.1 g/dL (3.5-5.0); ALKALINE PHOSPHATASE 81 U/L (38-126); ANION GAP 7 (5-19); ASPARTATE AMINO TRANSFERASE 34 U/L (14-36); BILIRUBIN,TOTAL 0.4 mg/dL (0.2-1.3); BLOOD UREA NITROGEN 10 mg/dL (7-20); CALCIUM 9.2 mg/dL (8.4-10.2); CARBON DIOXIDE 25 mmol/L (22-30); CHLORIDE 106 mmol/L (98-107); GLUCOSE 100 mg/dL (75-110); POTASSIUM 4.5 mmol/L (3.6-5.0); TOTAL PROTEIN 7.7 g/dL (6.3-8.2)
--- NOTE | 2019-09-25 09:22 | EKG REPORT ---
SEVERITY:- NORMAL ECG - SINUS RHYTHM : Confirmed by: Bruce Watt 25-Sep-2019 09:21:49
--- NOTE | 2019-09-27 13:18 | RADIOLOGY REPORT (SQ) ---
EXAM DESCRIPTION: CHEST PA/LATERAL IMAGES COMPLETED DATE/TIME: 09/27/2019 11:56 am REASON FOR STUDY: PRE OP COMPARISON: None. TECHNIQUE: Frontal and lateral radiographic views of the chest acquired. NUMBER OF VIEWS: Two view. LIMITATIONS: None. FINDINGS: LUNGS AND PLEURA: No opacities, masses or pneumothorax. No pleural effusion. MEDIASTINUM AND HILAR STRUCTURES: No masses or contour abnormalities. HEART AND VASCULAR STRUCTURES: Heart normal size. No evidence for failure. BONES: No acute findings. HARDWARE: None in the chest. OTHER: No other significant finding. IMPRESSION: NO SIGNIFICANT RADIOGRAPHIC FINDING IN THE CHEST. TECHNICAL DOCUMENTATION: JOB ID: [id number] 2010 [employer]- All Rights Reserved Reading location - IP/workstation name: [email or web address]
[~2019-09-29 05:24] MED LIST: CEFAZOLIN 1 GM/D5W RTU 1 GM/50 ML RTUPB IV PRN; LACTATED RINGERS 1000 ML IV PRN; LIDOCAINE 0.5% INJ-PF (5 MG/ML) 50 ML SDV SUBCUT PRN; RINGERS SOLUTION,LACTATED 1,000 ML IV PRN
[2019-09-29] MEDS ORDERED: CEFAZOLIN 1 GM/D5W RTU 1 GM/50 ML RTUPB IV ONE (05:28)
[2019-09-29] MEDS ORDERED: MIDAZOLAM 2 MG/2 ML INJ ONE (06:46)
[2019-09-29] MEDS ORDERED: PROPOFOL INJ 200 MG/20 ML VIAL IV ONE (06:46)
[2019-09-29] MEDS ORDERED: HYDROMORPHONE HCL INJ/PF 2 MG/ML AMPULE ONE (06:46)
[2019-09-29] MEDS ORDERED: BUPIVACAINE HCL 0.25 % INJ/PF (2.5 MG/1 ML) 30 ML VIAL ONE (07:10)
[2019-09-29] MEDS ORDERED: MEPERIDINE HCL/PF INJ 25 MG/1 ML DISP.SYRIN IV PRN (07:47)
[2019-09-29] MEDS ORDERED: ONDANSETRON HCL INJ/PF 4 MG/2 ML SDV IV PRN (07:47)
[2019-09-29] MEDS ORDERED: PROMETHAZINE HCL INJ 25 MG/1 ML VIAL IV PRN ×2 (07:47)
[2019-09-29] MEDS ORDERED: FENTANYL CITRATE INJ/PF 100 MCG/2 ML AMPUL IV PRN ×3 (07:47)
[2019-09-29] MEDS ORDERED: DIPHENHYDRAMINE HCL 50 MG/ML VIAL IV PRN (07:47)
[2019-09-29] MEDS ORDERED: FENTANYL CITRATE INJ/PF 100 MCG/2 ML AMPUL ONE (09:03)
--- NOTE | 2019-09-29 10:14 | Operative Report ---
Operative Report DATE OF SURGERY: 09/29/19 PREOPERATIVE DIAGNOSIS: Hypermenorrhea unresponsive to medical therapy POSTOPERATIVE DIAGNOSIS: Same plus suspected adenomyosis OPERATION: Robotic assisted LAVH bilateral salpingectomy SURGEON: CARI NAGY ANESTHESIA: GA TISSUE REMOVED OR ALTERED: Uterus tubes COMPLICATIONS: None PROCEDURE: Patient placed in a dorsolithotomy position prepped sterile fashion. V care was placed per protocol. Attention turned to the abdomen where a supraumbilical incision was made trocar was introduced with insufflation the abdomen introduction of laparoscope. Multiple adhesions from the him to the anterior abdominal wall where previous section scar was located. Also adhesions to the right adnexal wall on the right. Puncture was made lateral to first on the left and a 5 trocar was introduced and a third lateral on the right and a 5 was introduced. The accessory port was introduced above the supra iliac crest. Using monopolar scissors the adhesions were sharply taken down across the scar. Following this the robot was docked in usual fashion. Using monopolar and bipolar cautery the remainder the adhesions were excised on the left and around the left tube and ovary. On the right the omentum was adhered to the anterior dominant wall this was taken down with sharp dissection. Left tube was then removed by dividing along the mesosalpinx using bipolar monopolar cautery. Utero-ovarian ligament was clamped divided on that side and stasis was noted. On the right the ovary was adhered to the small portion of the omentum this was taken down with sharp dissection. The tube was then removed by dividing along the mesosalpinx with monopolar bipolar cautery. Utero-ovarian li gament was then cauterized and divided. The ligament divided down the side of the uterus each pedicle being cauterized with monopolar cautery and severed with bipolar cautery. At this point the V care ring could not be identified secondary to uterus and the bladder being tacked very high. Robot was undocked and was deflated and attention turned to the pelvis. Care was removed speculum placed cervix visualized and grasped with single-tooth tenaculum. The posterior prior to peritoneum was entered with sharp dissection posterior parietoperitoneum sutured posterior cuff with 2-0 Vicryl left uterosacral clamped divided and suture 2-0 Vicryl P on the right. Sharply circumscribed anterior peritoneum was entered with sharp dissection. Serial clamps use the centimeters each pedicle being divided and sutured with 2-0 Vicryl. This continues level where the above incision was encountered and the uterus and tubes were removed. Cuff was closed with interrupted 2-0 Vicryl. She was turned back to the abdomen where she reinflated there was irrigated with normal saline hemostasis was noted. No culture inspected hemostasis was noted. Deflated and instruments removed trocar sleeves removed the supraumbilical and accessory port closed with 4-0 Vicryl for the fascia and 4 oh subcu for the skin. The 2 puncture wounds were closed with 4-0 suture. XO FEN was placed on the incisions. Patient is urinating clear that procedure taken recovery in good condition.
[2019-09-29] MEDS ORDERED: HYDROMORPHONE HCL 2 MG TABLET PO PRN (10:28)
[2019-09-29] MEDS ORDERED: ONDANSETRON HCL 8 MG TABLET PO PRN (10:28)
[2019-09-29] MEDS: MEPERIDINE HCL/PF INJ 25 MG/1 ML DISP.SYRIN ONE ×2 (10:30→10:35)
[2019-09-29] MEDS ORDERED: KETOROLAC TROMETHAMINE INJ/PF 30 MG/1 ML SDV ONE (10:32)
[2019-09-29] MEDS ORDERED: ONDANSETRON HCL INJ/PF 4 MG/2 ML SDV ONE ×2 (11:01→12:45)
[2019-09-29] MEDS ORDERED: LIDOCAINE 2% INJ-PF (20 MG/ML) 2 ML AMPUL ONE (12:45)
[2019-09-29] MEDS ORDERED: METOCLOPRAMIDE HCL INJ/PF 10 MG/2 ML SDV ONE (12:45)
[2019-09-29] MEDS ORDERED: GLYCOPYRROLATE 1 MG/5 ML VIAL ONE (12:45)
[2019-09-29] MEDS ORDERED: NEOSTIGMINE METHYLSULFATE 10 MG/10 ML VIAL ONE (12:45)
[2019-09-29] MEDS ORDERED: ROCURONIUM BROMIDE INJ 50 MG/5 ML VIAL IV ONE (12:45)
[2019-09-29] MEDS ORDERED: DEXAMETHASONE SOD PHOSPHATE INJ 4 MG/1 ML VIAL ONE (12:45)
[2019-09-29] MEDS ORDERED: IBUPROFEN 800 MG TABLET PO SCH (14:00)
[2019-09-29 20:01] VITALS: BP 141/77
== END 2019-09-29 20:15 | disposition home or self-care (01) ==
LOC: OROUT 05:24 → 2S 11:52 → OROUT 20:15
PROVIDERS: ATTEND Obstetrics & Gynecology Gynecology
DX: N92.0 Excessive and frequent menstruation with regular cycle (principal); N80.0 Endometriosis of uterus; Z03.818 Encounter for observation for suspected exposure to other biological agents ruled out; N72 Inflammatory disease of cervix uteri; D25.9 Leiomyoma of uterus, unspecified; N83.8 Other noninflammatory disorders of ovary, fallopian tube and broad ligament; F17.210 Nicotine dependence, cigarettes, uncomplicated; I10 Essential (primary) hypertension; D64.9 Anemia, unspecified; E28.2 Polycystic ovarian syndrome; Z79.899 Other long term (current) drug therapy; Z88.5 Allergy status to narcotic agent
CPT/HCPCS: 58552; S2900; 36415; 71046; 80053; 81001; 81025; 840; 85027; 86850; 86900; 86901; 87635; 88307; 93005; 93010; C1758; C9803; J0690; J1100; J1170; J1885; J2175; J2250; J2405; J2704; J2710; J2765; J3010; J3490

== ENCOUNTER 2020-02-14 09:58 | Emergency (ER) | payer BC, OTHER ==
[2020-02-14] MEDS ORDERED: DIPHENHYDRAMINE HCL 50 MG/ML VIAL IV ONE (10:39)
[2020-02-14] MEDS ORDERED: FAMOTIDINE INJ/PF 20 MG/2 ML SDV IV ONE (10:39)
[2020-02-14] MEDS ORDERED: NORMAL SALINE 1000 ML 1,000 ML IV ONE (10:39)
[2020-02-14] MEDS ORDERED: LORAZEPAM INJ 2 MG/1 ML VIAL IV ONE (10:40)
--- NOTE | 2020-02-14 11:27 | ER Document Report ---
Entered by TERRY ARCE SCRIBE 02/14/20 [facility] Acting as scribe for:YARITZA BARTHOLOMEW MD ED Allergic Reaction - General Chief Complaint: Allergic Reaction Stated Complaint: LIGHTHEADED,HANDS TINGLING Time Seen by Provider: 02/14/20 10:32 Primary Care Provider: FIDE COE, MEDICAL STAFF CREDENTIALING COORDINATOR [Primary Care Provider] - Follow up as needed Mode of Arrival: Ambulatory Information source: Patient Notes: This 49-year-old female patient presents to the emergency department today with complaints of a possible allergic reaction to Effexor. Patient took her first dosage of Effexor this morning and she states that almost immediately after she felt like her "head was swimming, vomiting, sweaty, shaky, jumpy". Patient has known allergies to shellfish, morphine, and latex. Rash on arms does not itch. TRAVEL OUTSIDE OF THE [place] IN LAST 30 DAYS: No - Related Data Allergies/Adverse Reactions: venlafaxine [From Effexor] Allergy (Intermediate, Verified 02/14/20 10:24) multi codeine [Codeine] Allergy (Mild, Verified 02/14/20 10:24) Latex, Natural Rubber Allergy (Verified 02/14/20 10:24) morphine Allergy (Verified 02/14/20 10:24) shellfish derived Allergy (Verified 02/14/20 10:24) Home Medications: PNV, amlodipine, HCTZ, zanax Past Medical History - General Information source: Patient - Social History Smoking Status: Current Every Day Smoker Cigarette use (# per day): Yes Chew tobacco use (# tins/day): No Frequency of alcohol use: Social Drug Abuse: None Lives with: Family Family History: Reviewed & Not Pertinent, Hypertension Patient has homicidal ideation: No - Past Medical History Cardiac Medical History: Reports: Hx Hypertension Renal/ Medical History: Reports: Hx Ovarian Cysts - pcos Psychiatric Medical History: Reports: Hx Depression Past Surgical History: Reports: Hx Abdominal Surgery - gastric bypass/sleeve 2016, Hx Appendectomy, Hx Section - x2, Hx Cholecystectomy, Hx Hysterectomy - Immunizations Immunizations up to date: No Hx Diphtheria, Pertussis, Tetanus Vaccination: Yes Review of Systems - Review of Systems Constitutional: See HPI, Other - allergic reaction EENT: No symptoms reported Cardiovascular: No symptoms reported Respiratory: No symptoms reported Gastrointestinal: No symptoms reported Genitourinary: No symptoms reported Female Genitourinary: No symptoms reported Musculoskeletal: No symptoms reported Skin: See HPI, Change in color Hematologic/Lymphatic: No symptoms reported Neurological/Psychological: No symptoms reported -: Yes All other systems reviewed and negative Physical Exam - Vital signs Vitals: Temp Pulse Resp BP Pulse Ox 97.9 F 109 H 24 H 157/82 H 99 02/14/20 10:04 02/14/20 10:04 02/14/20 10:04 02/14/20 10:04 02/14/20 10:04 - Notes Notes: Physical Exam: General: Alert, appears well. HEENT: Normocephalic. Atraumatic. PERRL. Extraocular movements intact. Oropharynx clear. Neck: Supple. Non-tender. Respiratory: No respiratory distress. Clear and equal breath sounds bilaterally. Cardiovascular: Tachycardic, regular rhythm. Abdominal: Normal Inspection. Non-tender. No distension. Normal Bowel Sounds. Back: No gross abnormalities. Extremities: Moves all four extremities. Upper extremities: Minimal erythema to bilateral upper extremities, does not itch. Normal ROM. Lower extremities: Normal inspection. No edema. Normal ROM. Neurological: Normal cognition. AAOx4. Normal speech. Psychological: Normal affect. Normal Mood. Skin: Warm. Dry. Minimal erythema to bilateral upper extremities. Does not itch. Course - Re-evaluation Re-evalutation: 02/14/20 11:41 Patient reports she is feeling back to normal at this time and is ready to go home. - Vital Signs Vital signs: Temp Pulse Resp BP Pulse Ox 97.9 F 109 H 20 144/94 H 94 02/14/20 10:04 02/14/20 10:04 02/14/20 11:08 02/14/20 11:08 02/14/20 11:08 - Laboratory Results Critical Laboratory Results Reviewed: No Critical Results - Radiology Results Critical Radiology Results Reviewed: No Critical Results Discharge - Discharge Clinical Impression: Generalized anxiety disorder Allergic reaction caused by a drug Qualifiers: Encounter type: initial encounter Qualified Code(s): T78.40XA - Allergy, unsp ecified, initial encounter Condition: Stable Disposition: HOME, SELF-CARE Additional Instructions: Stop taking the Effexor for now. Continue your regular medications. Follow-up with your primary care provider and your mental health provider. RETURN TO THE EMERGENCY ROOM IF ANY NEW OR WORSENING SYMPTOMS. Referrals: FIDE COE, MEDICAL STAFF CREDENTIALING COORDINATOR [Primary Care Provider] - Follow up as needed I personally performed the services described in the documentation, reviewed and edited the documentation which was dictated to the scribe in my presence, and it accurately records my words and actions.
[2020-02-14 12:14] VITALS: BP 147/92
== END 2020-02-14 12:14 | disposition home or self-care (01) ==
LOC: ER 09:58
DX: L27.0 Generalized skin eruption due to drugs and medicaments taken internally (principal); R11.10 Vomiting, unspecified; R61 Generalized hyperhidrosis; T43.215A Adverse effect of selective serotonin and norepinephrine reuptake inhibitors, initial encounter; F41.1 Generalized anxiety disorder; F32.9 Major depressive disorder, single episode, unspecified; F17.210 Nicotine dependence, cigarettes, uncomplicated; I10 Essential (primary) hypertension; Z79.899 Other long term (current) drug therapy; Z98.84 Bariatric surgery status; Z91.013 Allergy to seafood; Z88.6 Allergy status to analgesic agent; Z88.5 Allergy status to narcotic agent; Z91.040 Latex allergy status; R00.0 Tachycardia, unspecified
CPT/HCPCS: 99284; 96361; 96374; 96375; J1200; J2060; J7030; S0028